=== PATIENT | female | born 1950 | race Caucasian/White ===

== ENCOUNTER 2022-07-04 08:14 | Outpatient (CLI) | payer OTHER, SELFPAY | END 2022-07-04 08:15 | disposition home or self-care (01) | LOC: NFLDREF 07-05 12:13 | PROVIDERS: PCP Emergency Medicine; Referring Provider Emergency Medicine; Visit Provider Emergency Medicine | DX: Z00.00 Encounter for general adult medical examination without abnormal findings (principal); I10 Essential (primary) hypertension; E78.5 Hyperlipidemia, unspecified; E11.9 Type 2 diabetes mellitus without complications; R73.01 Impaired fasting glucose; R74.01 Elevation of levels of liver transaminase levels; E66.9 Obesity, unspecified | CPT/HCPCS: 80053; 80061 ==

== ENCOUNTER 2022-08-09 09:04 | Outpatient (RCR) | payer OTHER, SELFPAY | END 2022-12-23 23:59 | disposition home or self-care (01) | PROVIDERS: PCP Emergency Medicine; Visit Provider Orthopaedic Surgery Sports Medicine | DX: M17.12 Unilateral primary osteoarthritis, left knee (principal); Z96.652 Presence of left artificial knee joint; M25.562 Pain in left knee; R26.89 Other abnormalities of gait and mobility; Z51.89 Encounter for other specified aftercare | CPT/HCPCS: 80048; 97110; 97161; 97535 ==

== ENCOUNTER 2022-08-09 13:55 | Outpatient (CLI) | payer OTHER, SELFPAY | END 2022-08-09 13:56 | disposition home or self-care (01) | PROVIDERS: PCP Emergency Medicine; Visit Provider Emergency Medicine | DX: Z01.818 Encounter for other preprocedural examination (principal); R10.9 Unspecified abdominal pain | CPT/HCPCS: 80048; 87086 ==

== ENCOUNTER 2022-10-12 12:39 | Outpatient (CLI) | payer OTHER, SELFPAY ==
--- NOTE | 2022-10-12 13:00 | CRLHL7_ITS ---
For Patients: As a result of the Century Cures Act, medical imaging exams and procedure reports are released immediately into your electronic medical record. You may view this report before your referring provider. If you have questions, please contact your health care provider. DXA BONE MINERAL DENSITY STUDY Current height (in): 65.0. Weight (lb): 200.0. Menopause age: 60. Ethnicity: White. Reason for exam: Osteoporosis. 1. Have you had a previous hip or vertebral fracture? No. 2. Have you had any fractures during your adult life which did not result from significant trauma (e.g., auto accident)? No. 3. Did either of your parents have a hip fracture? No. 4. Do you smoke? No. 5. Have you ever taken Glucocorticoids? No. 6. Do you have rheumatoid arthritis? No. 7. Do you have secondary osteoporosis? No. 8. Do you drink 3 or more alcoholic drinks per day? No. 9. Are you being treated for osteoporosis? No. 10. Have you ever taken any of the following medications: Actonel, Evista, Fosamax, Miacalcin, Reclast, Boniva, Forteo, HRT (i.e. estrogen/hormone therapy), Protelos, Prolia, Vitamin D, Calcium, other ??? please specify. ANSWER: Yes, vitamin D. 11. Do you have any of the following medical conditions: Anorexia or bulimia, asthma or emphysema, end stage renal disease, hyperparathyroidism, any seizure disorders, cancer, inflammatory bowel diseases, hysterectomy, other ??? please specify. ANSWER: No. 12. What was your maximum height (inches)? 65. 13. Do you perform weight bearing exercise regularly? Yes. 14. Do you regularly consume dairy products? Yes. 15. Do you drink caffeinated beverages? Yes. 16. At what age did your period start? 16. 17. Are you premenopausal? No. 18. How many full-term pregnancies have you had? 4. 19. Have you ever missed your period for more than 6 months in a row (not including or menopause)? No. TECHNIQUE: Bone mineral density study was performed using the [employer]. FINDINGS: The results of the study expressed as bone mineral density (BMD) are as follows: Lumbar spine L1 to L3: BMD: 1.301 g/cm2. T-score: 2.6. Z-score: 4.7. Neck Left: BMD: 0.840 g/cm2. T-score: -0.1. Z-score: 1.8. Right: BMD: 0.804 g/cm2. T-score: -0.4. Z-score: 1.4. Total Left: BMD: 0.927 g/cm2. T-score: -0.1. Z-score: 1.4. Right: BMD: 0.970 g/cm2. T-score: 0.2. Z-score: 1.8. IMPRESSION: Normal bone density. *Comparison exams done prior to 08/2019 were performed on different unit, [facility]. COMPARISON: Compared with scan of 03/05/2020, the bone mineral density has increased by 10.7 percent at the spine and increased by 2.1 percent at the hip. Dustin Vizcarra M.D. Diagnostic Radiologist [email or web address] Transcribed: 2:23 pm DW/Dictated by: Dustin Vizcarra MD @ 10/13/2022 9:28:00 AM (Electronically Signed)
--- NOTE | 2022-10-12 13:40 | CRLHL7_ITS ---
For Patients: As a result of the Cures Act, medical imaging exams and procedure reports are released immediately into your electronic medical record. You may view this report before your referring provider. If you have questions, please contact your health care provider. BILATERAL SCREENING MAMMOGRAM WITH COMPUTER-AIDED DETECTION AND TOMOSYNTHESIS TECHNIQUE: CC and MLO views were obtained. These mammographic images have been obtained using full-field digital technique. These mammographic images were interpreted with the benefit of computer-aided detection. Breast Tomosynthesis was used in this interpretation. COMPARISON FILM: 06/21/21, 10/01/19, 11/21/17. FINDINGS: There are scattered areas of fibroglandular density IMPRESSION: There is no radiographic evidence for malignancy. ASSESSMENT: BI-RADS Category 1: Negative RECOMMENDATION: Routine screening mammogram in 1 year. A lay language report of this examination will be provided to the patient. Dustin Vizcarra M.D. Diagnostic Radiologist [email or web address] Transcribed: 1:48 p.mAby [email or web address]/Dictated by: Dustin Vizcarra MD @ 10/13/2022 9:14:00 AM (Electronically Signed)
== END 2022-10-12 12:40 | disposition home or self-care (01) ==
LOC: RAD 12:40
PROVIDERS: PCP Emergency Medicine; Visit Provider Emergency Medicine
DX: Z12.31 Encounter for screening mammogram for malignant neoplasm of breast (principal); M81.0 Age-related osteoporosis without current pathological fracture
CPT/HCPCS: 77063; 77067; 77080

== ENCOUNTER 2022-10-19 10:14 | Outpatient (CLI) | payer OTHER, SELFPAY | END 2022-10-19 10:15 | disposition home or self-care (01) | LOC: LKVREF 11:03 | PROVIDERS: PCP Emergency Medicine; Referring Provider Emergency Medicine; Visit Provider Emergency Medicine | DX: R31.9 Hematuria, unspecified (principal) | CPT/HCPCS: 87086; 87186 ==

== ENCOUNTER 2022-11-08 12:21 | Outpatient (CLI) | payer OTHER, SELFPAY | END 2022-11-08 12:22 | disposition home or self-care (01) | LOC: NFLDREF 11-12 06:24 | PROVIDERS: PCP Emergency Medicine; Referring Provider Emergency Medicine; Visit Provider Registered Nurse | DX: R30.0 Dysuria (principal); N34.3 Urethral syndrome, unspecified; N39.0 Urinary tract infection, site not specified; N30.01 Acute cystitis with hematuria | CPT/HCPCS: 87086; 87186 ==

== ENCOUNTER 2023-02-01 11:17 | Outpatient (CLI) | payer OTHER, SELFPAY | END 2023-02-01 11:18 | disposition home or self-care (01) | PROVIDERS: PCP Emergency Medicine; Visit Provider Emergency Medicine | DX: E11.9 Type 2 diabetes mellitus without complications (principal) | CPT/HCPCS: 80061; 82043; 82570 ==

== ENCOUNTER 2023-03-10 09:44 | Outpatient (CLI) | payer OTHER, SELFPAY | END 2023-03-10 09:45 | disposition home or self-care (01) | LOC: NFLDREF 03-12 12:09 | PROVIDERS: PCP Emergency Medicine; Referring Provider Emergency Medicine; Visit Provider Family Medicine | DX: N39.0 Urinary tract infection, site not specified (principal) | CPT/HCPCS: 87086; 87186 ==

== ENCOUNTER 2023-03-23 08:11 | Outpatient (CLI) | payer OTHER, SELFPAY | END 2023-03-23 08:12 | disposition home or self-care (01) | LOC: LKVREF 08:12 | PROVIDERS: PCP Emergency Medicine; Visit Provider Emergency Medicine | DX: R31.9 Hematuria, unspecified (principal); N39.0 Urinary tract infection, site not specified | CPT/HCPCS: 87086 ==

== ENCOUNTER 2023-08-16 09:08 | Outpatient (CLI) | payer OTHER, SELFPAY | END 2023-08-16 09:09 | disposition home or self-care (01) | PROVIDERS: PCP Emergency Medicine; Visit Provider Family Medicine | DX: Z01.818 Encounter for other preprocedural examination (principal); E11.9 Type 2 diabetes mellitus without complications; K76.0 Fatty (change of) liver, not elsewhere classified; E66.09 Other obesity due to excess calories; E78.5 Hyperlipidemia, unspecified; I10 Essential (primary) hypertension; Z13.29 Encounter for screening for other suspected endocrine disorder; Z13.21 Encounter for screening for nutritional disorder | CPT/HCPCS: 80048; 82607; 84443 ==

== ENCOUNTER 2023-08-30 06:57 | Day surgery (SDC) | payer OTHER, SELFPAY ==
[2023-08-30] VITALS (24 sets, daily range): BP systolic 92–135; BP diastolic 54–78; PULSE 52–88; RESP 14–18; TEMP 35.8–36.8; O2SAT 92–99; BMI 31.4
[2023-08-30] MEDS: OXYCODONE (CR) 10 MG TAB.ER.12H PO (07:20)
[2023-08-30] MEDS: ACETAMINOPHEN 500 MG TABLET 1000 MG PO ×3 (07:20→21:40)
--- NOTE | 2023-08-30 07:36 | CRLHL7_ITS ---
For Patients: As a result of the Cures Act, medical imaging exams and procedure reports are released immediately into your electronic medical record. You may view this report before your referring provider. If you have questions, please contact your health care provider. INDICATION: Knee arthroplasty. FINDINGS: Two views of the left knee show left knee arthroplasty changes which appear intact. No evidence of acute fracture or dislocation. No other bony or soft tissue abnormalities identified. Dictated by Williams Godinez MD @ 08/31/2023 12:54:50 PM (Electronically Signed)
[2023-08-30] MEDS: LACTATED RINGERS 1000 ML 1,000 ML 100 ML IV (08:12)
[2023-08-30] MEDS: SODIUM CHLORIDE 0.9 % (FLUSH) 10 ML SYRINGE IVF (08:12)
[2023-08-30] MEDS: MIDAZOLAM HCL 1 MG/ML inj IVP (08:27)
[2023-08-30] MEDS: fentaNYL 100 MCG/2 ML inj IVP (08:27)
--- NOTE | 2023-08-30 08:30 | SUR.PREOP ---
TIME?OUT:?0825 PT/RN/MDA?VERIFICATION?OF?SURGICAL?SITE,?PROCEDURE,?AND?CONSENT OBTAINED?PRIOR?TO?INVASIVE?PROCEDURE.
[2023-08-30] MEDS: CEFAZOLIN 2 GM in 0.9 % SODIUM CHLORIDE Mini-bag 100 ML IVPB ×3 (09:02→22:31)
[2023-08-30] MEDS: TRANEXAMIC ACID 100 MG/ML INJ 1000 MG IV (09:06)
[2023-08-30] MEDS: LACTATED RINGERS 1000 ML 1,000 ML 75 ML IV (10:30)
--- NOTE | 2023-08-30 10:30 | W.PM.H&PU ---
History & Physical Update History & Physical Update H&P Reviewed and patient assessed: No changes noted
--- NOTE | 2023-08-30 10:30 | PM.ORPRC ---
Procedure Note Date of procedure: 08/30/23 Procedure: PREOPERATIVE DIAGNOSIS: 1. Left knee osteoarthritis, primary, severe POSTOPERATIVE DIAGNOSIS: 1. Left knee osteoarthritis, primary, severe PROCEDURE: 1. Left total knee arthroplasty - subvastus SURGEON: Stephen Jacob MD. STRIPPER LATEX: Katie Salas PA-C - Of note, a skilled assistant corporate controller was critical for this case to aid in patient positioning, tissue retraction, limb manipulation/positioning, and closure. ANESTHESIA: Spinal anesthetic EBL: 50ml IMPLANTS: DePuy J&J all cemented TKA - Attune PS femur size 5 regular, size 4 tibia, 5 poly spacer, 35 mm patella TOURNIQUET: 90 min at 300 torr COMPLICATIONS: None evident INDICATIONS: The patient is a pleasant 73-year-old female who has experienced severe left knee pain and difficulty bearing weight. Workup included x-rays which revealed severe osteoarthrosis in the knee. Given the deformity, the dysfunction, and the pain, as well as the failure of nonoperative management, recommendation was made for surgery. FINDINGS: Full-thickness chondral loss diffusely throughout the medial and patellofemoral compartments. To lesser degree lateral compartment. Interestingly, she had significant fatty infiltration of her quadriceps distally. Beyond that, passive flexion prior to start of the procedure showed approximately 95?. After TKA she was still limited to approximately 105?. Very tight quadriceps itself causing the limitation in flexion. Large effusion upon entering the joint. DESCRIPTION OF PROCEDURE: Following a thorough discussion of risks, benefits, and alternatives consent was obtained and the left knee was marked. The patient was brought to the operating room and placed supine on the operating table. Induction of anesthesia was undertaken. 2 g IV Ancef and 1 g tranexamic acid was administered within 1 hr of incision preoperatively. Proper time-out was performed identifying proper patient, site, procedure. The operative extremity was prepped and draped in the appropriate sterile fashion using ChloraPrep after the patient was positioned supine with all bony prominences well padded. A longitudinal, anterior, midline skin incision was made starting approximately 3cm proximal to the superior pole of the patella and advanced distal to the tibial tubercle. A subvastus approach was utilized. A medial subperiosteal sleeve was created with knife, guevara elevator and curved osteotome. The retropatellar fatpad was resected and the synovium in the suprapatellar pouch excised to visualize the anterior femoral cortex. Femoral preparation was performed via an intramedullary guide. Step drill allowed access into the femoral canal. The distal cutting guide was placed with 5? of valgus and 10 mm cut on the distal femur. Femur was sized using a posterior referencing guide in 3? of external rotation. This found have a best fit with the sizing noted above. The 4 in 1 cutting block was then placed, and the distal femur shaped accordingly. The box cut was then created and the trial implant inserted to confirm appropriate fit. We turned our attention to the proximal tibia. Extramedullary guide was utilized for cutting with the goal of being 90 degree cut from the mechanical axis of the tibia in the varus/valgus plane utilizing tibial crest as the primary alignment. Initially a 2 mm resection was performed from the medial tibial plateau. Ultimately, balancing was achieved in both flexion and extension in both varus and valgus. The knee was able to achieve full extension as well comfortably. The patella was initially measured and found have a thickness of 22 mm. It was resected back to approximately 14 mm. It was sized to be a best fit with as noted above. This was drilled, trial placed. All trials were placed and found to have an excellent stability and balance. At this stage, trial implants were removed, the knee was thoroughly irrigated with normal saline, and the cement was mixed. After irrigation, the knee was thoroughly dried, and cement placed, with the real tibial and femoral implants placed along with the patella. Trial poly spacer was placed and confirmed to have excellent range of motion and full extension, and the real poly spacer opened and inserted. All extra cement was removed, and a 3 min Betadine soak performed. Finally, a final irrigation round with normal saline was performed. Closure performed with 0 PDS and #0 Stratafix for the quad tendon/retinaculum. 2-0 Vicryl/Stratafix for the subcutaneous and 4-0 Monocryl for subcuticular closure. Dressings were applied and the patient was awoken from anesthesia after the tourniquet deflated and transferred the PACU in stable condition. A skilled assistant corporate controller was critical for this case to aid in patient positioning, tissue retraction, bone exposure, limb manipulation/positioning, patient safety, and closure. PLAN: 1. Weight bear as tolerated operative extremity. 2. 23 hr perioperative antibiotics. 3. Ice. 4. PT/OT consults for ambulation assistance/mobility education. 5. Social work consult for discharge planning. 6. DVT prophylaxis with at SCDs and aspirin twice daily.
--- NOTE | 2023-08-30 10:50 | P.NB_ITS ---
Nerve Block Nerve Block Time Seen by Provider: 08:33 Date Seen: 08/30/23 Type of block requested by surgeon for post-operative analgesia: geniculars Side: left Time out performed: Yes Verification of patient name: Yes Verification of date of : Yes Site marking: site marked Name of person performing procedure: Bharath Continuous monitoring Was continuous monitoring of O2 sat, B/P, project geologist, recorded every 15 minutes?: Yes Procedure Checklist: sterile prep, needles and gloves Medications given in 5ml increments after negative aspiration: Ropivicaine %: 0.5 mL: 9 Needle gauge: 25 Patient tolerated procedure well: Yes Block Charges Block Charge (with Pro Fee): Genicular Nerve Block Use of Ultrasound Machine for Block: No
--- NOTE | 2023-08-30 10:50 | W.ANESCHARGE ---
Anesthesia Charges Start Date/Time Anesthesia Start Date: 08/30/23 Anesthesia Start Time: 08:45 Stop Date/Time Anesthesia Stop Date: 08/30/23 Anesthesia Stop Time: 11:00 Summary Extremes of Age - Over 70 or under 1: MDA
--- NOTE | 2023-08-30 10:50 | W.PM.NB ---
Nerve Block Nerve Block Time Seen by Provider: 08:33 Date Seen: 08/30/23 Type of block requested by surgeon for post-operative analgesia: adductor canal Side: left Time out performed: Yes Verification of patient name: Yes Verification of date of : Yes Site marking: site marked Name of person performing procedure: Bharath Continuous monitoring Was continuous monitoring of O2 sat, B/P, band bias machine operator, recorded every 15 minutes?: Yes Procedure Checklist: sterile prep, needles and gloves Ultrasound guided. Images saved: Yes Medications given in 5ml increments after negative aspiration: Ropivicaine %: 0.5 mL: 20 Needle gauge: 20 Decadron (mg): 10 Precedex (mcg): 25 Patient tolerated procedure well: Yes Additional comments: Needle noted adjacent to nerve Block Charges Block Charge (with Pro Fee): Femoral Nerve Use of Ultrasound Machine for Block: Yes- US Guidance/pain block
--- NOTE | 2023-08-30 11:07 | P.ANES_ITS ---
Anesthesia Charges Start Date/Time Anesthesia Start Date: 08/30/23 Anesthesia Start Time: 08:45 Stop Date/Time Anesthesia Stop Date: 08/30/23 Anesthesia Stop Time: 11:00 Summary Extremes of Age - Over 70 or under 1: SECURITY OPERATIONS CENTER ANALYST
[2023-08-30] MEDS: LACTATED RINGERS 1000 ML 1,000 ML 125 ML IV (14:21)
--- NOTE | 2023-08-30 14:37 | PC.NURSE ---
Patient up to floor at 1130, dressing to Left knee C/D/I, VSS, and LSC to auscultation. Family at bedside. Patient tolerating a reg. diet. denies N/V/SOB or pain. Patient able to move toes but denies any feeling in lower extremity. Patient 97% on RA. Bilateral Plexi pulses, and IV in Left hand and LR running at 75mls/hr.
[2023-08-30] MEDS: OXYCODONE 5 MG TABLET PO ×3 (15:21→22:37)
[2023-08-30] MEDS: HYDROmorphone 0.5 mg/0.5 ml inj IVP (19:30)
--- NOTE | 2023-08-30 19:33 | PC.NURSE ---
Entered patient's chart to assist nurse with medication administration.
--- NOTE | 2023-08-30 19:36 | PC.NURSE ---
End of shift: Patient pleasant and cooperative, A&O. VSS, afebrile. Patient reports pain on her left knee rating anywhere from a 3-6/10, managed with PRN medication, see MAR. Ice applied to left knee. Dressing on left knee C/D/I. Tolerating regular diet. Up to bathroom 2A with walker and gait belt.
--- NOTE | 2023-08-30 19:53 | PM.IMCN1 ---
Date of Consult Patient: [facility] Patient Consult date: 08/30/23 Requesting Physician: Orthopedics Primary Care Provider: Krystina Del Real Consult Narrative Narrative: Lupe Espinosa is a 73 year old female admitted to the hospital for left total knee arthroplasty. Procedures performed by Dr. Jacob. No operative complications. Postoperatively she is generally doing well except she continues to have quite a bit of left knee pain and she is still feeling quite chilled. No nausea, dyspnea, fever. Preoperatively she reports she was generally doing well. Preop physical did not identify any significant active concerns. She reports compared to her previous surgery on her right knee her postoperative pain is quite a bit greater on this occasion. It is possible her nerve block for her knee is not fully effective. Review of Systems Narrative: No concerns about her ongoing left knee pain and feeling chilled [facility] Medical History (Updated 08/30/23 @ 19:58 by Chris Benavidez MD) COVID-19 ?U07.1 - COVID-19 (ICD-10) ESBL (extended spectrum beta-lactamase) producing bacteria infection ?A49.9 - Bacterial infection, unspecified (ICD-10) ?Z16.12 - Extended spectrum beta lactamase (ESBL) resistance (ICD-10) Infarction of spleen ?D73.5 - Infarction of spleen (ICD-10) Lung nodule ?R91.1 - Solitary pulmonary nodule (ICD-10) Fracture of anatomical neck of humerus ?S42.293A - Other displaced fracture of upper end of unspecified humerus, initial encounter for closed fracture (ICD-10) Basal cell carcinoma (BCC) ?C44.91 - Basal cell carcinoma of skin, unspecified (ICD-10) Surgical History (Updated 08/30/23 @ 19:58 by Chris Benavidez MD) History of arthroplasty of left knee ?Z96.652 - Presence of left artificial knee joint (ICD-10) 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 She lives in a home that does have stairs but she can live on 1 level. She did this after her right knee replacement in the past and it worked well for her. She does not smoke. She occasionally drinks alcohol. What is your current living situation?: I presently have a place to live Problems where you live: no known problems In the past 12 months, utilities in danger of being shut off: no In past 12 months, lack of transportation kept you from medical appts, meetings, work, or getting things needed for daily living: no In the past 12 mos, have been you worried that your food would run out before you had money to buy more?: never true In the past 12 mos, the food you bought just didn't last and you didn't have money to buy more?: never true Highest level of school completed/degree received: some college, no degree Smoking Status: Never smoker Do you use any of these nicotine containing products: None Second hand tobacco smoke exposure: No How often do you have a drink containing alcohol: monthly or less Alcohol type: wine How many standard drinks containing alcohol do you have on a typical day: 1 or 2 How often do you have six or more drinks on one occasion: Never AUDIT-C Alcohol total score: 1 Non-prescribed substance use: denies use Caffeine: Yes (coffee) How often does anyone, including family, friends and others, physically hurt you: never How often does anyone, including family, friends and others, insult or talk down to you: never How often does anyone, including family, friends and others, threaten you with harm: never How often does anyone, including family, friends and others, scream or curse at you: never Little interest or pleasure in doing things: not at all Feeling down, depressed, or hopeless: not at all service: No Meds Home Medications and Allergies Home Medications ?Medication ?Instructions ?Recorded ?Confirmed ?Type aspirin 81 mg chewable tablet 81 mg PO DAILY 07/06/22 08/30/23 History cholecalciferol (vitamin D3) 25 1,000 unit PO DAILY 07/06/22 08/30/23 History mcg (1,000 unit) capsule ibuprofen 200 mg tablet 400 mg PO Q6H PRN 07/06/22 08/30/23 History loratadine 10 mg tablet 10 mg PO DAILY PRN 07/06/22 08/30/23 History multivit-iron 18 mg-folic acid 400 1 tab PO DAILY 07/06/22 08/30/23 History mcg-calcium 500 mg-minerals tablet (Daily Multiple For Women) metformin 500 mg tablet,extended 1,000 mg PO DAILY 08/30/23 08/30/23 History release 24 hr Allergies Allergy/AdvReac Type Severity Reaction Status Date / Time lisinopril Allergy Intermediate Cough Verified 08/30/23 08:20 Exam Narrative: Exam Narrative: She is alert and appears in no distress. She gives her own history with good detail. Oropharynx with small airway. Neck is supple without mass or adenopathy. Respirations are clear to auscultation. Cardiovascular: S1, S2, regular rate and rhythm. Abdomen: Bowel sounds active. Abdomen is soft without tenderness or mass. She moves all 4 extremities well. No edema. Good peripheral pulses. Const: Vital Signs, click to edit/add: Vital Signs - 24 hr 08/30/23 07:19 08/30/23 08:27 08/30/23 08:30 Temperature 97.4 F L Pulse Rate 66 59 L 59 L Pulse Rate [Left P ulse Oximeter] Respiratory Rate 16 16 16 Blood Pressure 135/75 133/68 129/66 Blood Pressure [Ri ght Arm] Pulse Oximetry 96 97 95 Oxygen Delivery Me thod Room Air Nasal Cannula Nasal Cannula Oxygen Flow Rate 2 4 08/30/23 08:35 08/30/23 08:40 08/30/23 10:55 Temperature 97.4 F L Pulse Rate 55 L 56 L 58 L Pulse Rate [Left P ulse Oximeter] Respiratory Rate 14 14 14 Blood Pressure 125/65 125/63 92/55 L Blood Pressure [Ri ght Arm] Pulse Oximetry 95 97 96 Oxygen Delivery Me thod Nasal Cannula Nasal Cannula Room Air Oxygen Flow Rate 4 2 08/30/23 11:00 08/30/23 11:05 08/30/23 11:10 Temperature Pulse Rate 62 60 60 Pulse Rate [Left P ulse Oximeter] Respiratory Rate 14 14 14 Blood Pressure 92/55 L 98/58 L 104/59 L Blood Pressure [Ri ght Arm] Pulse Oximetry 97 96 97 Oxygen Delivery Me thod Room Air Room Air Room Air Oxygen Flow Rate 08/30/23 11:15 08/30/23 11:20 08/30/23 11:25 Temperature Pulse Rate 62 59 L 58 L Pulse Rate [Left P ulse Oximeter] Respiratory Rate 14 14 14 Blood Pressure 105/64 102/64 110/64 Blood Pressure [Ri ght Arm] Pulse Oximetry 96 96 96 Oxygen Delivery Me thod Room Air Room Air Room Air Oxygen Flow Rate 2 08/30/23 11:36 08/30/23 11:45 08/30/23 12:00 Temperature 96.5 F L 96.5 F L 97.0 F L Pulse Rate 55 L 53 L Pulse Rate [Left P ulse Oximeter] 55 L Respiratory Rate 16 16 16 Blood Pressure 109/63 109/64 Blood Pressure [Ri ght Arm] 119/68 Pulse Oximetry 95 97 97 Oxygen Delivery Me thod Room Air Room Air Room Air Oxygen Flow Rate 08/30/23 12:15 08/30/23 12:30 08/30/23 13:00 Temperature 97.0 F L 97.3 F L 97.3 F L Pulse Rate 60 52 L 52 L Pulse Rate [Left P ulse Oximeter] Respiratory Rate 16 16 16 Blood Pressure 118/54 L 127/78 123/65 Blood Pressure [Ri ght Arm] Pulse Oximetry 98 99 98 Oxygen Delivery Me thod Room Air Room Air Room Air Oxygen Flow Rate 2 08/30/23 13:30 08/30/23 14:00 08/30/23 15:00 Temperature 97.5 F L 97.5 F L 97.5 F L Pulse Rate 52 L 52 L 62 Pulse Rate [Left P ulse Oximeter] Respiratory Rate 16 16 16 Blood Pressure 124/62 126/73 125/76 Blood Pressure [Ri ght Arm] Pulse Oximetry 99 97 97 Oxygen Delivery Me od Room Air Room Air Room Air Oxygen Flow Rate 08/30/23 15:00 08/30/23 18:00 08/30/23 19:00 Temperature 98.2 F Pulse Rate Pulse Rate [Left P ulse Oximeter] 72 Respiratory Rate 18 18 Blood Pressure Blood Pressure [Ri ght Arm] 124/69 Pulse Oximetry 93 98 95 Oxygen Delivery Me thod Room Air Room Air Oxygen Flow Rate Documenting provider has reviewed patient's vital signs: yes Assessment and Plan Assessment and plan (1) Postoperative pain: Problem comment: I suspect ineffective nerve block. Continue routine oral analgesics. Status: Acute (2) History of arthroplasty of left knee: Problem comment: 08/30/2023, Dr. Jacob, no complications Status: Acute (3) Type 2 diabetes mellitus: Problem comment: Diagnosed June 2022 hemoglobin A1c 7.1 02/01/2023 A1c -- 7.2% Status: Acute (4) Hypertension: Status: Acute (5) Chills (without fever): Problem comment: She has normal temperature. Warming blankets and observe. Status: Acute Plan Admission to hospital for management of postoperative pain, routine therapy and perioperative management of chronic medical problems. Anticipate discharge to home tomorrow if doing well. Total Time Spent Total Time Spent: Total time spent today is 45 minutes, 30 minutes in coordination of care and discussing with patient and other providers management of pain, chills and chronic medical problems after surgery
[2023-08-30] MEDS: 0.9 % SODIUM CHLORIDE 500 ML IV (19:57)
[2023-08-30] MEDS: SENNOSIDES 1 TAB TABLET 2 TAB PO (21:40)
[2023-08-30] MEDS: ASPIRIN 81 MG TABLET EC PO (21:41)
[2023-08-31] MEDS: OXYCODONE 5 MG TABLET PO ×3 (01:20→10:07)
[2023-08-31] MEDS: ACETAMINOPHEN 500 MG TABLET 1000 MG PO ×2 (01:21→07:42)
[2023-08-31 02:28] VITALS: BP 128/75; PULSE 100; RESP 18; TEMP 36.6; O2SAT 92
--- NOTE | 2023-08-31 05:30 | PC.NURSE ---
Shift note: Pt is doing well ambulating with A1, walker and GB. Pain level has been rated between 6 and 8 and PRN pain med given as ordered. IV N/S 500ml bolus given at 2000 to increase urine output. Pt has since had 2x urine tonight. She tolerated regular diet well. Alert and oriented.Dressing clean and dry. Vitally stable.
[2023-08-31] MEDS: CEFAZOLIN 2 GM in 0.9 % SODIUM CHLORIDE Mini-bag 100 ML IVPB (06:45)
[2023-08-31 06:59] LABS: Basophils Absolute Auto 0.02 K/uL (0.00-0.30); Basophils Percent Auto 0.3 % (0.0-3.0); Eosinophils Absolute Auto 0.06 K/uL (0.00-0.50); Eosinophils Percent Auto 0.8 % (0.0-7.0); Hematocrit 31.2 % (33.0-51.0); Hemoglobin* 10.8 gm/dL (12.0-16.0); Immature Granulocytes Abs Auto 0.02 K/uL (0.00-0.30); Immature Granulocytes Pct Auto 0.3 %; Lymphocytes Absolute Auto 1.88 K/uL (0.90-2.90); Lymphocytes Percent Auto 25.1 % (20-44); Mean Corpuscular HGB Conc 35 gm/dL (32-36); Mean Corpuscular Hemoglobin 30 pg (26-34); Mean Corpuscular Volume 87 fL (80-100); Monocytes Percent Auto 7.8 % (0.0-11.0); Neutrophils Absolute Auto 4.92 K/uL (1.7-7.0); Neutrophils Percent Auto 65.7 % (42.0-72.0); Platelet Count* 188 K/uL (140-440); RDW Coefficient of Variation % 12.7 % (11.5-15.5); Red Blood Count 3.58 m/uL (4.00-5.20); White Blood Count* 7.48 K/uL (4.50-11.00)
[2023-08-31 07:00] VITALS: BP 133/73; PULSE 89; RESP 18; TEMP 37.2; O2SAT 97
[2023-08-31 07:00] LABS: Slide Review Reflex No
[2023-08-31 07:08] LABS: Sodium* 134 mmol/L (135-149)
[2023-08-31 07:09] LABS: Potassium* 4.3 mmol/L (3.6-5.1)
[2023-08-31 07:11] LABS: Creatinine* 0.6 mg/dL (0.5-1.5); Est. Creatinine Clearance* 42.68; Estimated Glomerular Filt Rate 96 ml/min
[2023-08-31 07:12] LABS: Blood Urea Nitrogen* 17 mg/dL (7-30)
[2023-08-31] MEDS: METFORMIN ER 500 MG 1000 MG PO (07:42)
[2023-08-31] MEDS: ASPIRIN 81 MG TABLET EC PO (07:43)
[2023-08-31] MEDS: METOPROLOL SUCCINATE (XL) 50 MG TAB PO (07:43)
[2023-08-31] MEDS: MULTIVITAMIN/MINERALS 1 TABLET 1 TAB PO (07:43)
[2023-08-31] MEDS: hydroCHLOROthiazide 25 MG TABLET PO (07:43)
[2023-08-31] MEDS: SENNOSIDES 1 TAB TABLET 2 TAB PO (09:01)
--- NOTE | 2023-08-31 09:24 | PM.ORPN ---
Subjective Subjective Date Seen: 08/31/23 Principal diagnosis: Status postop day 1 left total knee arthroplasty Interval history: Patient reports doing well. No acute events over night. Pain managed with scheduled and PRN medications, ice. Pain is primarily posterior knee. Feeling chilled, with no objective fevers. DVT prophylaxis: 81 mg aspirin by mouth twice daily, SCDs, ambulation. Denies N/V, CP, SOB/SALGADO, or lightheadedness. Passing flatus. Ortho Exam Narrative Exam Narrative: -Patient appears comfortable; no apparent acute distress -Alert and oriented times 3 -Operative knee mildly swollen; soft tissues supple; no ecchymosis; no erythematous streaking Warmth appropriate -Surgical dressing clean, dry, intact; no drainage -Bilateral calfs show no significant edema, erythema, discoloration, warmth, or palpable cords. Mildly tender left calf with mild swelling. -2+ DP/PT pulses, intact dermatomes and myotomes distally (5/5 strength) Const Vital Signs, click to edit/add: Vital Signs - 24 hr 08/30/23 10:55 08/30/23 11:00 08/30/23 11:05 Temperature 97.4 F L Pulse Rate 58 L 62 60 Pulse Rate [Left Pulse Oximeter] Respiratory Rate 14 14 14 Blood Pressure 92/55 L 92/55 L 98/58 L Blood Pressure [Right Arm] Pulse Oximetry 96 97 96 Oxygen Delivery Method Room Air Room Air Room Air Oxygen Flow Rate 08/30/23 11:10 08/30/23 11:15 08/30/23 11:20 Temperature Pulse Rate 60 62 59 L Pulse Rate [Left Pulse Oximeter] Respiratory Rate 14 14 14 Blood Pressure 104/59 L 105/64 102/64 Blood Pressure [Right Arm] Pulse Oximetry 97 96 96 Oxygen Delivery Method Room Air Room Air Room Air Oxygen Flow Rate 08/30/23 11:25 08/30/23 11:36 08/30/23 11:45 Temperature 96.5 F L 96.5 F L Pulse Rate 58 L 55 L Pulse Rate [Left Pulse Oximeter] 55 L Respiratory Rate 14 16 16 Blood Pressure 110/64 109/63 Blood Pressure [Right Arm] 119/68 Pulse Oximetry 96 95 97 Oxygen Delivery Method Room Air Room Air Room Air Oxygen Flow Rate 2 08/30/23 12:00 08/30/23 12:15 08/30/23 12:30 Temperature 97.0 F L 97.0 F L 97.3 F L Pulse Rate 53 L 60 52 L Pulse Rate [Left Pulse Oximeter] Respiratory Rate 16 16 16 Blood Pressure 109/64 118/54 L 127/78 Blood Pressure [Right Arm] Pulse Oximetry 97 98 99 Oxygen Delivery Method Room Air Room Air Room Air Oxygen Flow Rate 08/30/23 13:00 08/30/23 13:30 08/30/23 14:00 Temperature 97.3 F L 97.5 F L 97.5 F L Pulse Rate 52 L 52 L 52 L Pulse Rate [Left Pulse Oximeter] Respiratory Rate 16 16 16 Blood Pressure 123/65 124/62 126/73 Blood Pressure [Right Arm] Pulse Oximetry 98 99 97 Oxygen Delivery Method Room Air Room Air Room Air Oxygen Flow Rate 2 08/30/23 15:00 08/30/23 15:00 08/30/23 18:00 Temperature 97.5 F L Pulse Rate 62 Pulse Rate [Left Pulse Oximeter] Respiratory Rate 16 18 Blood Pressure 125/76 Blood Pressure [Right Arm] Pulse Oximetry 97 93 98 Oxygen Delivery Method Room Air Room Air Oxygen Flow Rate 08/30/23 19:00 08/30/23 22:32 08/30/23 22:32 Temperature 98.2 F Pulse Rate Pulse Rate [Left Pulse Oximeter] 72 88 Respiratory Rate 18 18 Blood Pressure Blood Pressure [Right Arm] 124/69 Pulse Oximetry 95 95 Oxygen Delivery Method Room Air Oxygen Flow Rate 08/30/23 22:32 08/30/23 22:32 08/31/23 02:28 Temperature 98 F 98 F Pulse Rate Pulse Rate [Left Pulse Oximeter] 88 100 Respiratory Rate 18 18 18 Blood Pressure Blood Pressure [Right Arm] 129/73 128/75 Pulse Oximetry 92 92 92 Oxygen Delivery Method Room Air Room Air Room Air Oxygen Flow Rate 08/31/23 07:00 08/31/23 07:00 08/31/23 07:00 Temperature Pulse Rate Pulse Rate [Left Pulse Oximeter] 89 Respiratory Rate 18 18 Blood Pressure Blood Pressure [Right Arm] Pulse Oximetry 97 97 Oxygen Delivery Method Room Air Oxygen Flow Rate 08/31/23 07:00 Temperature 98.9 F Pulse Rate Pulse Rate [Left Pulse Oximeter] 89 Respiratory Rate 18 Blood Pressure Blood Pressure [Right Arm] 133/73 Pulse Oximetry 97 Oxygen Delivery Method Room Air Oxygen Flow Rate Assessment and Plan Assessment and plan (1) Postoperative pain: Problem details: I suspect ineffective nerve block. Continue routine oral analgesics. Status: Acute (2) History of arthroplasty of left knee: Problem details: 08/30/2023, Dr. Jacob, no complications Status: Acute (3) Type 2 diabetes mellitus: Problem details: Diagnosed June 2022 hemoglobin A1c 7.1 02/01/2023 A1c -- 7.2% Status: Acute (4) Hypertension: Status: Acute (5) Chills (without fever): Problem details: She has normal temperature. Warming blankets and observe. Status: Acute Plan - Complete 23 hour perioperative antibiotics. - PT/OT consult for education and assistance. - Social work consult for discharge planning - Prescribed analgesics as needed - DVT prophylaxis: 81 mg aspirin by mouth twice daily, SCDs and early ambulation - Anticipation is for discharge to home with spouse today, 08/31/2023 if the patient remains medically stable, pain is controlled, and they are safe with mobilization.
--- NOTE | 2023-08-31 11:22 | PC.NURSE ---
Nursing discharge note: Pt is A&O, afebrile and VSS. Left knee dressing is C/D/I with mild swelling around site. Active ice on/off throughout the day. Pt c/o 9/10 pain upon arrival this morning so PRN oxycodone given x2 doses this AM to manage pain. Pt reported adequate relief rating pain at 4/10 after meds. PIV in left hand was discontinued with catheter intact. She is Ax1 with 2ww and gait belt for ambulation and transfers. She denies any nausea or dizziness. Tolerated breakfast with no nausea and has had adequate U/O on day of discharge. Pt?s has been at bedside and attentive to pt?s needs. Discharge instructions and new medication education reviewed with both patient and her who both verbalized understanding. Pt was discharged via W/C accompanied by staff at 1110. ?
== END 2023-08-31 11:10 | disposition home or self-care (01) ==
LOC: OR 06:58 → MEDSURG 07:01
PROVIDERS: PCP Emergency Medicine; Visit Provider Orthopaedic Surgery Sports Medicine
PROC: (CPT 27447; principal; 2023-08-30 09:15)
DX: M17.12 Unilateral primary osteoarthritis, left knee (principal); G89.18 Other acute postprocedural pain; E11.9 Type 2 diabetes mellitus without complications; I10 Essential (primary) hypertension; R68.83 Chills (without fever); E66.9 Obesity, unspecified; Z68.33 Body mass index [BMI] 33.0-33.9, adult
CPT/HCPCS: 27447; 01402; 36415; 64447; 64454; 73560; 76942; 82565; 82962; 84132; 84295; 84520; 85025; 97110; 97116; 97161; 97165; 97530; 97535; 99100; A9153; A9270; C1776; J0690; J1100; J1170; J2250; J2405; J2704; J2795; J3010; J7030; J7120

== ENCOUNTER 2023-11-14 09:15 | Outpatient (RCR) | payer OTHER, SELFPAY ==
--- NOTE | 2023-09-01 13:15 | PT.OPE ---
PT [facility] Outpatient Eval PT [facility] Outpatient Eval Start: 09/01/23 13:10 Freq: Status: Active Protocol: Document 09/01/23 13:11 CHERELLE (Rec: 09/01/23 13:12 CHERELLE [id number]) E-signed By Asad Art DPT, MS Physical Therapy Outpatient Evaluation Insurance Information Recert Due Date 11/30/23 Insurance Name Medicare B,Other; See Comments Insurance Information/Comments [employer] Medical Diagnosis Status-post left total knee arthroplasty Treating Diagnosis L knee pain, decreased L LE flexibility and ROM, imbalance , gait dysfunction and L LE weakness. Subjective Subjective Pt presents to PT following L TKA on 08/30/23 at [facility] with D/C to home with her yesterday. Pt reports her nerve block did not provide pain relief following surgery but has taken oxycodone recently. Sleeping well only waking last night for pain medication and bathroom use. Her sister is staying with her during the first few weeks of her recovery to assist her . 6 steps to enter and leave her home going well with a step-to pattern. Sit to stand transfers requiring ?s assistance but she has been able to perform SLR exercise without assistance. Concerned about swelling since she was not provided TITA hose or an SETH wrap like she was during her R TKA. PMH includes DM-II and R knee OA. AGGR factors: walking, standing, getting up off chairs and toilet, sleeping, walking, stair climbing. ALLEV factors: ice, oxycodone, movement. Pt highly motivated to return to walking and biking for exercise and travelling with her . Pain Comments 2-9/10. Level of 9 initially after waking after surgery Current Work Status Retired Preferred Name [employer] Precautions Weight Bearing Status Weight Bear as Tolerated Therapy Limitations/Systems Review Not Limited Objective Functional Test Performed & Score LEFS: 4 Assessment Assessment/Impression Pt is doing well overall 3 days post-op with well managed pain levels despite an ineffective nerve block. 1+ L knee diffuse edema with high levels of hamstring and posterior knee tightness. Passive ROM of 0-12-84 deg and the importance of passive ext stretching emphasized. Mod quality of quad sets with pt able to perform a good I SLR. Encouraged pt to move her L LE more frequently to decrease stiffness and pain. Reviewed pt?s HEP with decreased knee stiffness following. She will benefit from continued skilled therapy to address these limitations. Primary Functional Limitations Walking, standing, getting up off chairs and toilet, sleeping, walking, stair climbing Rehabilitation Plan of Care Rehabilitation Potential Excellent Physical Therapy Goals Short-term goals to be completed in 4 weeks: 1.Pt will display improved L knee passive ROM > 0-0-120 deg to improve quality of stair climbing. 2.Pt will display improved L LE strength as evidenced by ability to perform >12 SLR of good quality to improve quality of gait and progress to ambulation with single point cane. 3.Pt will report waking <3 times per night due to L knee pain to improve quality of sleep for >2 consecutive days. Long-term goals to be completed in 10 weeks: 1.Pt will be independent and compliant with HEP for long- term sx management 2.Pt will display improved L hip flex, hip ABD, quad and hamstring strength >4/5 to improve quality of gait without assistive device. 3.Pt will display improved mechanics going up<>down 6 stairs with a reciprocal pattern using 1 railing to safely reach her home. 5. Pt will be able to walk >8 minutes without an AD to improve cardiovascular health. 4.Pt report >75% improvement in LEFS questionnaire to significantly improve good to daily activities. Coordination/Communication With Referral Source Treatment Plan/Direct Interventions Gait Training,Ice/Cold/ Vasopneumatic,Joint Mobilization,Manual Therapy, Neuromuscular Re-ed, Therapeutic Activities, Therapeutic Exercises Frequency/Duration 2x per week for 16-20 visits, decreasing visit frequency as able. Patient Will Be Discharged From Therapy Completion of LTG(s),Skills Plateau,Independent w/HEP, Independently Progressing Evaluation Billing Untimed Code Treatment Minutes 24 Complexity Moderate Certification Information Initial Certification Date 09/01/23 Ending Certification Date 11/30/23 Provider Signature Required Yes Provider Signature Shows Agreement With POC & Medical Necessity Physician NPI Number Write NPI# Here Physician Comment/Change : Physician Signature & Date Requested Please Sign/Date Here
--- NOTE | 2023-11-14 12:00 | PT.OPDN ---
PT [place] Outpatient Daily Note PT [facility] Out[facility] Daily Note Start: 09/01/23 13:10 Freq: Status: Active Protocol: Document 11/14/23 09:17 BMS (Rec: 11/14/23 11:36 BMS [id number]) E-signed By Betzaida Iyer, PT PT OP Daily Progress Note Visit Information Note Type Daily Note,Recert/Progress Note Visit Number [id number] Insurance Authorized Visits 40 Insurance Information Recert Due Date 02/12/24 Insurance Name Medicare B,Other; See Comments Insurance Information/Comments [employer] choice Medical Diagnosis Status-post left total knee arthroplasty Treating Diagnosis L knee pain, decreased L LE flexibility and ROM, imbalance , gait dysfunction and L LE weakness. Referring MD Jacob Subjective Preferred Name [employer] Forbes doing pretty good, really hope I am at 120 today. have a busy couple of weeks but know I need to do this Precautions Treatment Precautions/Contraindications diabetes in surgery ROM flex 105 Home Exercise Home Exercise Comments Access Code: [email or web address] URL: [email or web address] Date: 11/14/2023 Prepared by: Betzaida Iyer Exercises - Hip Flexor Stretch at Edge of Bed - 2-3 x daily - 5-7 x weekly - 2-3 sets - stretches: hold 30-60 sec stretch - Prone Knee Flexion - 1-3 x daily - 5-7 x weekly - 1-3 sets - 10-20 reps - strength: 5-10 sec hold - Prone Hip Extension with Bent Knee - 1-3 x daily - 5-7 x weekly - 1-3 sets - 10-20 reps - strength: 5-10 sec hold - Seated Table Hamstring Stretch - 1-3 x daily - 5-7 x weekly - 1-3 sets - stretches : hold 30-60 sec stretch Objective Other/Pertinent Objective see assessment 0-0-120 Patient Instructed in Risks/Benefits Yes Therapeutic Exercise Therapeutic Exercise Minutes (minutes) 30 Therapeutic Exercise: To Restore - prone hip extension with Functional Status bent knee x 10 - hip flexor stretches LE off edge of bed with CL knee toward chest 3 x 30 sec B - knee flex, ext and calf stretches at stair with significant encouragement to work toward full tolerated performed with therapist overpressure to hip to keep down hip Manual Therapy Techniques Manual Therapy Minutes (minutes) 12 Manual Therapy Techniques STM MFR to HS and calf in prone to improve ext with graston and with hands supine to quad and DF Treatment Minutes Timed Code Treatment Minutes 42 Total Treatment Time 42 Billing Units Manual Therapy Units 1 Therapeutic Exercise Units 2 Assessment/Impression Assessment/Impression patient primary deficit remains iliopsoas and quad restrictions, as well as restrictions into HS resulting in cramping. She achieves 120 flexion at the stair and 114 seated, with full extension achieved. Gait significantly improved though does still present with some lack of TKE in gait with forward flex at hips, no gait aid. She has progressed nicely, is able to perform steps with single rail on CL side from surgical and able to use ankle/hip and step strategies to recover from imbalance. My concern is with her motion, with tightness through thigh and knee she is at risk of losing motion. HEP specific to these concerns issued today with need to perform a minimum of 2x every other day though daily would be better. handout issued, patient verbalizes agreement with plan and she will call clinic with status update by . She also is preparing for 50 anniversary celebration to be held at her residence in Nov and may experience increase in swelling, pain, and mobility restricitons during this time. Plan of Care Physical Therapy Goals MET .Pt will display improved L knee passive ROM > 0-0-120 deg to improve quality of stair climbing. MET 2.Pt will display improved L LE strength as evidenced by ability to perform >12 SLR of good quality to improve quality of gait and progress to ambulation with single point cane. MET 3.Pt will report waking <3 times per night due to L knee pain to improve quality of sleep for >2 consecutive days. MET Pt will be independent and compliant with HEP for long- term sx management MET 2.Pt will display improved L hip flex, hip ABD, quad and hamstring strength >4/5 to improve quality of gait without assistive device. MET 3.Pt will display improved mechanics going up<>down 6 stairs with a reciprocal pattern using 1 railing to safely reach her home. MET 5. Pt will be able to walk >8 minutes without an AD to improve cardiovascular health. 4.Pt report >75% improvement in LEFS questionnaire to significantly improve tolerance of daily activities. Daily Plan of Care Change POC; See Comments Daily Plan of Care Comments patient to work on independent self management for the next few weeks then call in with how she is doing. Will write this as POC in case of relapse or loss of mobility, but anticipate this will be final visit and will serve as DC note shoulde patient not return Recertification Information Initial Certification Date 09/01/23 Recertification Start Date 11/14/23 Recertification Due Date 02/11/24 Reasons to Continue Skilled Therapy see assessment Rehabilitation Potential good - attempting self management Continued Plan of Care and Interventions ther ex, ther activity, neuro re-ed, MT, gait Provider Signature Shows Agreement With POC & Medical Necessity Physician Comment/Change Comment or Changes Physician NPI Number #
== END 2023-11-28 16:33 | disposition home or self-care (01) ==
PROVIDERS: PCP Emergency Medicine; Visit Provider Orthopaedic Surgery Sports Medicine
DX: M17.12 Unilateral primary osteoarthritis, left knee (principal); Z51.89 Encounter for other specified aftercare
CPT/HCPCS: 97032; 97110; 97112; 97116; 97140; 97162

== ENCOUNTER 2024-02-06 09:10 | Outpatient (CLI) | payer OTHER, SELFPAY | END 2024-02-06 09:11 | disposition home or self-care (01) | PROVIDERS: PCP Emergency Medicine; Referring Provider Emergency Medicine; Visit Provider Emergency Medicine | DX: Z00.00 Encounter for general adult medical examination without abnormal findings (principal); I10 Essential (primary) hypertension; E78.5 Hyperlipidemia, unspecified; E11.9 Type 2 diabetes mellitus without complications; L03.90 Cellulitis, unspecified; E78.2 Mixed hyperlipidemia | CPT/HCPCS: 80053; 80061; 82043; 82570 ==

== ENCOUNTER 2024-06-25 09:02 | Outpatient (CLI) | payer OTHER, SELFPAY ==
--- NOTE | 2024-06-25 09:15 | CRLHL7_ITS ---
For Patients: As a result of the Cures Act, medical imaging exams and procedure reports are released immediately into your electronic medical record. You may view this report before your referring provider. If you have questions, please contact your health care provider. BILATERAL SCREENING MAMMOGRAM WITH COMPUTER-AIDED DETECTION AND TOMOSYNTHESIS TECHNIQUE: CC and MLO views were obtained. These mammographic images have been obtained using full-field digital technique. These mammographic images were interpreted with the benefit of computer-aided detection. Breast Tomosynthesis was used in this interpretation. COMPARISON FILM: 10/12/22, 06/21/21, 10/01/19. FINDINGS: There are scattered areas of fibroglandular density IMPRESSION: There is no radiographic evidence for malignancy. ASSESSMENT: BI-RADS Category 2: Benign RECOMMENDATION: Routine screening mammogram in 1 year. A lay language report of this examination will be provided to the patient. Dustin Vizcarra M.D. Diagnostic Radiologist [email or web address] Transcribed: 4:37 p.mAby mcgrath/Dictated by: Dustin Vizcarra MD @ 06/25/2024 1:28:00 PM (Electronically Signed)
== END 2024-06-25 09:03 | disposition home or self-care (01) ==
LOC: MAMMO 09:02
PROVIDERS: PCP Emergency Medicine; Visit Provider Emergency Medicine
DX: Z12.31 Encounter for screening mammogram for malignant neoplasm of breast (principal)
CPT/HCPCS: 77063; 77067

== ENCOUNTER 2025-02-06 07:54 | Outpatient (CLI) | payer OTHER, SELFPAY | END 2025-02-06 07:55 | disposition home or self-care (01) | LOC: NFLDREF 02-09 17:30 | PROVIDERS: PCP Physician Assistant Medical; Referring Provider Physician Assistant Medical; Visit Provider Physician Assistant Medical | DX: E78.2 Mixed hyperlipidemia (principal); E11.9 Type 2 diabetes mellitus without complications; Z13.9 Encounter for screening, unspecified | CPT/HCPCS: 80053; 80061; 82043; 82306; 82570; 82607; 84443 ==